=== PATIENT | female | born 1975 | race African-American/Black ===

== ENCOUNTER → 2019-05-21 | Outpatient (CLI) | payer OTHER ==
[2019-05-21 17:15] LABS: HDL CHOLESTEROL 42 MG/DL (35-60); LDL CHOLESTEROL 51 MG/DL (50-100)
[2019-05-21 17:33] LABS: BASOPHILS % (AUTO) 0.6 % (0-1); EOSINOPHILS # (AUTO) 0.2 X10'3 (0-0.9); EOSINOPHILS % (AUTO) 2.8 % (0-6); HEMATOCRIT 45.8 % (35.0-45.0); LYMPHOCYTES # (AUTO) 2.3 X10'3 (1.1-4.8); LYMPHOCYTES % (AUTO) 31.9 % (21-51); MEAN CORPUSCULAR HEMOGLOBIN 32.1 PG (27.0-31.0); MEAN CORPUSCULAR HGB CONC 34.9 g/dL (33.0-36.5); MONOCYTES # (AUTO) 0.2 X10'3 (0-0.9); MONOCYTES % (AUTO) 3.4 % (2-12); NEUTROPHILS # (AUTO) 4.4 X10'3 (1.8-7.7); NEUTROPHILS % (AUTO) 61.3 % (42-75); RED BLOOD COUNT 4.97 X10'6 (4.20-5.60); RED CELL DISTRIBUTION WIDTH 12.9 % (11.5-14.5)
[2019-05-21 17:37] LABS: WHITE BLOOD COUNT 7.2 X10'3 (4.5-11.0)
[2019-05-21 17:39] LABS: MEAN PLATELET VOLUME 10.3 FL (7.4-10.4); PLATELET COUNT 305 X10'3 (140-440)
[2019-05-21 17:51] LABS: ALANINE AMINOTRANSFERASE 27 U/L (12-78); ALBUMIN 4.3 G/DL (3.4-5.0); ALKALINE PHOSPHATASE 106 IU/L (46-116); ANION GAP 17 (8-16); ASPARTATE AMINO TRANSFERASE 21 U/L (10-37); BILIRUBIN,TOTAL 0.3 MG/DL (0.1-1.0); BLOOD UREA NITROGEN 9 MG/DL (7-18); BUN/CREATININE RATIO 8.7 (6.6-38.0); CALCIUM 10.1 MG/DL (8.5-10.1); CHLORIDE 96 MMOL/L (99-107); CREATININE 1.03 MG/DL (0.40-0.90); POTASSIUM 4.6 MMOL/L (3.5-5.1); SODIUM 132 MMOL/L (135-145); TOTAL PROTEIN 8.7 G/DL (6.4-8.2); eGFR 71 ML/MIN
[2019-05-21 18:42] LABS: CHOL/HDL RATIO 18.1 (0.00-4.99); CHOLESTEROL 759 MG/DL (0-200); TRIGLYCERIDES 4200 MG/DL (20-135)
[2019-05-21 19:06] LABS: GLUCOSE 465 MG/DL (70-104)
== END | disposition home or self-care (01) ==
LOC: RAD 15:54
PROVIDERS: ATTEND Nurse Practitioner Family
DX: Z13.29 Encounter for screening for other suspected endocrine disorder (principal); Z76.89 Persons encountering health services in other specified circumstances; Z13.0 Encounter for screening for diseases of the blood and blood-forming organs and certain disorders involving the immune mechanism; M16.0 Bilateral primary osteoarthritis of hip; E11.65 Type 2 diabetes mellitus with hyperglycemia
CPT/HCPCS: 36415; 73522; 73565; 80053; 80061; 84439; 84443; 85025

== ENCOUNTER 2019-06-08 09:50 | Outpatient (CLI) | payer OTHER | END 2019-06-08 23:59 | disposition home or self-care (01) | LOC: CARD DIAG 09:50 | PROVIDERS: ATTEND Internal Medicine Cardiovascular Disease | DX: I10 Essential (primary) hypertension (principal); R07.9 Chest pain, unspecified | CPT/HCPCS: 93306 ==

== ENCOUNTER 2019-06-29 04:32 | Outpatient (CLI) | payer OTHER | END 2019-06-29 23:59 | disposition home or self-care (01) | LOC: DIABETIC 04:32 | PROVIDERS: ATTEND Nurse Practitioner Family | DX: E11.69 Type 2 diabetes mellitus with other specified complication (principal) | CPT/HCPCS: G0108 ==

== ENCOUNTER 2019-10-03 06:43 | Outpatient (CLI) | payer OTHER ==
[2019-10-03 07:27] LABS: ALANINE AMINOTRANSFERASE 20 U/L (12-78); ALBUMIN 3.7 G/DL (3.4-5.0); ALBUMIN/GLOBULIN RATIO 0.9 (1.1-1.5); ALKALINE PHOSPHATASE 52 IU/L (46-116); ANION GAP 8 (8-16); ASPARTATE AMINO TRANSFERASE 17 U/L (10-37); BILIRUBIN,TOTAL 0.3 MG/DL (0.1-1.0); BLOOD UREA NITROGEN 10 MG/DL (7-18); BUN/CREATININE RATIO 11.5 (6.6-38.0); CALCIUM 8.9 MG/DL (8.5-10.1); CHLORIDE 105 MMOL/L (99-107); CHOL/HDL RATIO 5.9 (0.00-4.99); CHOLESTEROL 255 MG/DL (0-200); CREATININE 0.87 MG/DL (0.40-0.90); GLUCOSE 161 MG/DL (70-104); HDL CHOLESTEROL 43 MG/DL (35-60); LDL CHOLESTEROL 174 MG/DL (50-100); POTASSIUM 4.1 MMOL/L (3.5-5.1); SODIUM 139 MMOL/L (135-145); TOTAL CARBON DIOXIDE 26.4 MMOL/L (24-32); TOTAL PROTEIN 7.6 G/DL (6.4-8.2); TRIGLYCERIDES 261 MG/DL (20-135); eGFR 71 ML/MIN
== END 2019-10-03 23:59 | disposition home or self-care (01) ==
LOC: LAB 06:43
PROVIDERS: ATTEND Physician Assistant Medical
DX: E78.5 Hyperlipidemia, unspecified (principal)
CPT/HCPCS: 36415; 80053; 80061

== ENCOUNTER 2020-09-21 17:20 | Emergency (ER) | payer OTHER ==
[~2020-09-21] VITALS: Ht 154.9 cm; Wt 75.0 kg
[2020-09-21 17:33] VITALS: BP 187/111
[2020-09-21] MEDS ORDERED: diphenhydrAMINE 25mg capsule PO ONE (17:50)
[2020-09-21] MEDS ORDERED: predniSONE 20 mg tablet PO ONE (17:50)
[2020-09-21] MEDS ORDERED: PRED20TA PO (17:52)
== END 2020-09-21 18:11 | disposition home or self-care (01) ==
LOC: ER 17:20
DX: T78.40XA Allergy, unspecified, initial encounter (principal); Z79.899 Other long term (current) drug therapy; X58.XXXA Exposure to other specified factors, initial encounter
CPT/HCPCS: 99283; J7512; Q0163

== ENCOUNTER 2020-11-14 21:24 | Emergency (ER) | payer BC, OTHER ==
[~2020-11-14] VITALS: Ht 154.9 cm; Wt 72.7 kg
[2020-11-14 22:38] LABS: BASOPHILS # (AUTO) 0.2 X10'3 (0-0.2); BASOPHILS % (AUTO) 1.6 % (0-1); EOSINOPHILS % (AUTO) 0.2 % (0-6); HEMOGLOBIN 14.2 g/dl (12.0-16.0); LYMPHOCYTES # (AUTO) 1.6 X10'3 (1.1-4.8); LYMPHOCYTES % (AUTO) 12.9 % (21-51); MEAN CORPUSCULAR HEMOGLOBIN 32.9 PG (27.0-31.0); MEAN CORPUSCULAR HGB CONC 34.5 g/dL (33.0-36.5); MEAN CORPUSCULAR VOLUME 95.1 FL (78-98); MEAN PLATELET VOLUME 9.8 FL (7.4-10.4); MONOCYTES # (AUTO) 0.8 X10'3 (0-0.9); MONOCYTES % (AUTO) 6.8 % (2-12); NEUTROPHILS # (AUTO) 9.7 X10'3 (1.8-7.7); NEUTROPHILS % (AUTO) 78.5 % (42-75); PLATELET COUNT 258 X10'3 (140-440); RED BLOOD COUNT 4.31 X10'6 (4.20-5.60); RED CELL DISTRIBUTION WIDTH 12.6 % (11.5-14.5); WHITE BLOOD COUNT 12.4 X10'3 (4.5-11.0)
[2020-11-14 22:53] LABS: CLARITY,URINE SLIGHTLY CLOUDY (Clear); COLOR,URINE YELLOW (Yellow); GLUCOSE, URINE 500 mg/dl (Neg); KETONES,URINE >=80 mg/dl (Neg); LEUKOCYTE ESTERASE ,URINE TRACE (Neg); NITRITES, URINE NEGATIVE (Neg); OCCULT BLOOD,URINE SMALL (Neg); PH,URINE 5.5 (4.8-8.0); PROTEIN,URINE 30 mg/dl (Neg); UROBILINOGEN,URINE 0.2 E.U/dL (0.2-1.0)
[2020-11-14 22:56] LABS: URINE HCG NEGATIVE (NEG)
[2020-11-14 22:58] LABS: ALANINE AMINOTRANSFERASE 21 U/L (12-78); ALBUMIN 3.3 G/DL (3.4-5.0); ALBUMIN/GLOBULIN RATIO 0.6 (1.1-1.5); ALKALINE PHOSPHATASE 89 IU/L (46-116); ANION GAP 21 (8-16); ASPARTATE AMINO TRANSFERASE 13 U/L (10-37); BILIRUBIN,TOTAL 0.7 MG/DL (0.1-1.0); BLOOD UREA NITROGEN 8 MG/DL (7-18); BUN/CREATININE RATIO 8.2 (6.6-38.0); CHLORIDE 91 MMOL/L (99-107); CREATININE 0.97 MG/DL (0.40-0.90); GLUCOSE 341 MG/DL (70-104); LIPASE 71 U/L (73-393); POTASSIUM 3.5 MMOL/L (3.5-5.1); SODIUM 129 MMOL/L (135-145); TOTAL PROTEIN 8.9 G/DL (6.4-8.2); eGFR 62 ML/MIN
[2020-11-14 23:10] LABS: UA COLLECTION TYPE CLN CATCH MIDSTREAM
[2020-11-14 23:11] LABS: BACTERIA,URINE FEW /HPF (Neg); RBC,URINE 0-2 /HPF (0-2); SQUAMOUS EPITHELIAL CELL,UR FEW /LPF (FEW); WBC CLUMPS,URINE FEW /HPF (NEGATIVE); WBC,URINE 50-100 /HPF (0-4)
[2020-11-15] MEDS ORDERED: ondansetron 4mg/5ml UD cup PO ONE (00:30)
[2020-11-15] MEDS ORDERED: acetaminophen 325mg tablet PO ONE (00:30)
[2020-11-15] MEDS ORDERED: ondansetron 4mg rapidly disintigrating tab PO ONE (00:35)
[2020-11-15] MEDS ORDERED: insulin regular, human 10 units/0.1 ml syringe IV ONE (00:45)
[2020-11-15] MEDS ORDERED: normal saline 1000ML IV soln IVB ONE (00:45)
[2020-11-15] MEDS ORDERED: CefTRIAXone 1000mg IM Kit (w/lidocaine diluent) IM ONE (00:45)
[2020-11-15] MEDS ORDERED: ondansetron/PF 4mg/2ml inj IV ONE (01:20)
[2020-11-15] MEDS ORDERED: CefTRIAXone 2gm/D5W 50ml BAG 50 ML IV ONE (01:20)
[2020-11-15] MEDS ORDERED: INSU100V43 SQ ×2 (02:41→02:46)
[2020-11-15] MEDS ORDERED: INSU100V9 SQ (02:41)
--- NOTE | 2020-11-15 02:53 | NUR ---
pt moved from bed 1 to bed 16. pt up to br with steady gait to void. pt reports some improvement inher symptoms since receiving the iv fluids.
[2020-11-15 05:28] VITALS: BP 126/92
[2020-11-16] MEDS ORDERED: CEPH-585 PO (19:40)
== END 2020-11-15 07:33 | disposition home or self-care (01) ==
LOC: ER 21:24
DX: N12 Tubulo-interstitial nephritis, not specified as acute or chronic (principal); R73.9 Hyperglycemia, unspecified; R51.9 Headache, unspecified; R53.83 Other fatigue; R50.9 Fever, unspecified; R11.0 Nausea; Z79.4 Long term (current) use of insulin
CPT/HCPCS: 36415; 80053; 81001; 81025; 82948; 83690; 85025; 87088; 87186; 96365; 96375; 99285; J0696; J1815; J2405; J7030; 87077

== ENCOUNTER 2020-11-16 16:36 | Emergency (ER) | payer BC ==
[~2020-11-16] VITALS: Ht 154.9 cm; Wt 72.7 kg
[~2020-11-16 16:36] MED LIST: INSU100V43 SQ; INSU100V9 SQ
[2020-11-16] MEDS ORDERED: TETanus/Pertussis (Acell)/Diphther VAC/PF (Tdap-Adult) 0.5ml syringe IMVAC ONE (17:30)
[2020-11-16] MEDS ORDERED: LIDOcaine 1% W/epiNEPHrine 1:200,000 10ml vial IJ ONE (18:00)
[2020-11-16] MEDS ORDERED: acetaminophen 325mg tablet PO ONE (18:20)
--- NOTE | 2020-11-16 19:01 | NUR ---
Tech currently irrigating wound at bedside.
[2020-11-16] MEDS ORDERED: CEPH-585 PO (19:40)
[2020-11-16 20:07] VITALS: BP 135/96
== END 2020-11-16 20:12 | disposition home or self-care (01) ==
LOC: ER 16:37
DX: S61.212A Laceration without foreign body of right middle finger without damage to nail, initial encounter (principal); S00.03XA Contusion of scalp, initial encounter; S80.12XA Contusion of left lower leg, initial encounter; S06.0X0A Concussion without loss of consciousness, initial encounter; W01.0XXA Fall on same level from slipping, tripping and stumbling without subsequent striking against object, initial encounter; Y93.89 Activity, other specified; Y92.89 Other specified places as the place of occurrence of the external cause; Y99.8 Other external cause status
CPT/HCPCS: 13131; 73130; 90471; 90715; 99284

== ENCOUNTER 2021-07-02 13:17 | Outpatient (CLI) | payer BC ==
[~2021-07-02 13:17] MED LIST changes: +CEPH-585 PO
== END 2021-07-02 23:59 | disposition home or self-care (01) ==
LOC: RAD 13:17
PROVIDERS: ATTEND Family Medicine
DX: M51.37 Other intervertebral disc degeneration, lumbosacral region (principal); M47.817 Spondylosis without myelopathy or radiculopathy, lumbosacral region; R16.0 Hepatomegaly, not elsewhere classified; G95.89 Other specified diseases of spinal cord
CPT/HCPCS: 72100; 72220; 76700

== ENCOUNTER 2021-07-03 06:42 | Outpatient (CLI) | payer BC | END 2021-07-03 23:59 | disposition home or self-care (01) | LOC: RAD 06:42 | PROVIDERS: ATTEND Family Medicine | DX: R10.31 Right lower quadrant pain (principal); M54.50 Low back pain, unspecified | CPT/HCPCS: 76856; 93976 ==